=== PATIENT | female | born 1960 | race Caucasian/White ===

== ENCOUNTER 2017-11-28 11:56 | Inpatient (IN) | payer OTHER, MEDICAID ==
[~2017-11-28] VITALS: Ht 154.9 cm; Wt 74.7 kg
[2017-11-28] MEDS ORDERED: IPRATROPIUM BROM 0.5 MG/2.5ML INH SOL NEB ONE (12:00)
[2017-11-28] MEDS ORDERED: ALBUTEROL SULF 2.5 MG/0.5ML(0.5%) NEB SOLN NEB ONE (12:00)
[2017-11-28] MEDS ORDERED: SODIUM CHLORIDE 0.9% 1,000 ML IV ONE (12:08)
[2017-11-28] MEDS ORDERED: IPRATROPIUM BROM 0.5 MG/2.5ML INH SOL HHN ONE (12:15)
[2017-11-28] MEDS ORDERED: ALBUTEROL SULF 2.5 MG/0.5ML(0.5%) NEB SOLN HHN ONE (12:15)
[2017-11-28] MEDS ORDERED: methylPREDNISolone SOD SUCC 125 MG/2 ML VL IV ONE ×2 (12:15→14:30)
[2017-11-28 12:55] LABS: Basophils # (auto) 0 uL; Eosinophils # (auto) 0 uL; Monocytes # (auto) 0.3 uL; Red Cell Distribution Width 14.9 % (11.8-14.3)
[2017-11-28 12:58] LABS: Basophils % (auto) 0.3 % (0.0-2.0); Hematocrit 43.7 % (36.0-46.0); Hemoglobin 14.3 g/dL (12.2-16.2); Lymphocytes # (auto) 1.9 uL; Lymphocytes % (auto) 16.6 % (10.0-50.0); Mean Corpuscular Hemoglobin 28.9 pg (28.0-32.0); Mean Corpuscular Hgb Conc. 32.9 g/dL (32.0-36.0); Monocytes % (auto) 2.8 % (0.0-12.0); Neutrophils % (auto) 80.3 % (37.0-80.0); Platelet Count (auto) 488 10^3/uL (140-450); Red Blood Cells 4.96 10^6/uL (4.0-5.20); White Blood Cell 11.2 10^3/uL (4.4-10.8)
[2017-11-28 13:21] LABS: Albumin 4.1 g/dL (3.4-5.0); Anion Gap 11 (5-15); Blood Urea Nitrogen 19 mg/dL (7-18); Calcium 9.3 mg/dL (8.5-10.1); Carbon Dioxide 21 mmol/L (21-32); Chloride 106 mmol/L (98-107); Glucose 128 mg/dL (74-106); Magnesium 2.2 mg/dL (1.6-2.6); Potassium 4.2 mmol/L (3.5-5.1); Sodium 138 mmol/L (136-145)
[2017-11-28 13:23] LABS: Alanine Aminotransferase 35 U/L (13-56); Aspartate Aminotransferase 21 U/L (15-37); BUN/Creatinine Ratio 14.7; GFR African American 55 mL/min; GFR Non-African American 45 mL/min
[2017-11-28 13:28] LABS: Alkaline Phosphatase 99 U/L (45-117); Bilirubin, Total 0.4 mg/dL (0.2-1.0)
[2017-11-28] MEDS ORDERED: LORazepam 2MG/ML-1ML VIAL IV ONE (13:30)
[2017-11-28] MEDS: SODIUM CHLORIDE 0.9% 1,000 ML IV SCH (14:30)
[2017-11-28] MEDS ORDERED: AZITHROMYCIN 500MG/ 250ML 250 ML IV ONE (14:30)
[2017-11-28] MEDS ORDERED: cefTRIAXone 1GM/10ml IVPUSH 10 ML IV ONE (14:30)
[2017-11-28] MEDS ORDERED: MORPHINE SULFATE 4 MG/ML SYR/VIAL IV PRN (15:45)
[2017-11-28] MEDS: HYDROcodone-ACET 5/325MG TAB PO PRN (16:00)
[2017-11-28] MEDS: BUDESONIDE (INHALATION) 0.5 MG/2 ML NEB NEB SCH (18:45)
[2017-11-28] MEDS: ALBUTEROL SULF 2.5 MG/0.5ML(0.5%) NEB SOLN NEB SCH (18:45)
[2017-11-28] MEDS: IPRATROPIUM BROM 0.5 MG/2.5ML INH SOL NEB SCH (18:45)
[2017-11-28 20:38] VITALS: BP 129/73
[2017-11-28 21:10] VITALS: BP 123/71
[2017-11-28] MEDS: methylPREDNISolone SOD SUCC 125 MG/2 ML VL IV SCH (21:51)
[2017-11-28] MEDS: ALPRAZolam 0.25 MG TAB PO PRN (21:51)
[2017-11-28 22:31] VITALS: BP 129/73
[2017-11-29] MEDS ORDERED: SIMV5TAB50 PO (02:02)
[2017-11-29] MEDS ORDERED: BACL10TA PO (02:02)
[2017-11-29] MEDS ORDERED: ROPI0.5T18 PO (02:02)
[2017-11-29] MEDS ORDERED: TRAZ-181 PO (02:02)
[2017-11-29] MEDS ORDERED: ASPI-492 PO (02:06)
[2017-11-29] MEDS ORDERED: LORA-622 PO (02:06)
[2017-11-29] MEDS ORDERED: PSYL48.56 PO (02:06)
[2017-11-29] MEDS ORDERED: OMEP20TA PO (02:06)
[2017-11-29] MEDS ORDERED: RANI300T3 PO (02:06)
[2017-11-29] MEDS ORDERED: ALPR-229 PO (02:06)
[2017-11-29] MEDS ORDERED: LOSA50TA6 PO (02:06)
[2017-11-29] MEDS ORDERED: NUTRTAB41 OR (02:06)
[2017-11-29] MEDS ORDERED: ALB2T PO (02:11)
[2017-11-29] MEDS ORDERED: LIFI1DRO OP (02:11)
[2017-11-29] MEDS ORDERED: KETO2CRE4 EX (02:11)
[2017-11-29] MEDS ORDERED: DOCU-94 PO (02:11)
[2017-11-29] MEDS ORDERED: POLYSOL5 EACHEYE (02:11)
[2017-11-29] MEDS ORDERED: BECL80AE9 IN (02:11)
[2017-11-29] MEDS ORDERED: ALBU1SYP GT (02:11)
[2017-11-29] MEDS ORDERED: MULT-569 PO (02:11)
[2017-11-29] MEDS ORDERED: FLUT50SP28 (02:11)
[2017-11-29] MEDS: HYDROcodone-ACET 5/325MG TAB PO PRN ×3 (04:14→21:05)
[2017-11-29 05:08] VITALS: BP 130/55
[2017-11-29] MEDS: methylPREDNISolone SOD SUCC 125 MG/2 ML VL IV SCH ×3 (05:33→21:55)
[2017-11-29 06:49] LABS: Potassium 3.7 mmol/L (3.5-5.1)
[2017-11-29 06:55] LABS: BUN/Creatinine Ratio 24.6; Calcium 8.6 mg/dL (8.5-10.1)
[2017-11-29] MEDS: BUDESONIDE (INHALATION) 0.5 MG/2 ML NEB NEB SCH ×2 (07:18→18:54)
[2017-11-29] MEDS: ALBUTEROL SULF 2.5 MG/0.5ML(0.5%) NEB SOLN NEB SCH ×4 (07:18→18:48)
[2017-11-29] MEDS: IPRATROPIUM BROM 0.5 MG/2.5ML INH SOL NEB SCH ×4 (07:18→18:48)
[2017-11-29 08:06] VITALS: BP 140/73
[2017-11-29] MEDS: cefTRIAXone 1GM/10ml IVPUSH 10 ML IV SCH (09:27)
[2017-11-29] MEDS: AZITHROMYCIN 500MG/ 250ML 250 ML IV SCH (09:28)
[2017-11-29] MEDS: SODIUM CHLORIDE 0.9% 1,000 ML IV SCH ×2 (09:30→23:43)
[2017-11-29] MEDS: ALPRAZolam 0.25 MG TAB PO PRN ×2 (10:20→19:18)
[2017-11-29 11:52] VITALS: BP 122/68
[2017-11-29] MEDS: ACETAMINOPHEN 325 MG TAB PO PRN ×2 (12:10→18:06)
[2017-11-29 16:58] VITALS: BP 119/72
[2017-11-29 20:00] VITALS: BP 130/64
[2017-11-29 22:28] VITALS: BP 130/64
[2017-11-30 05:18] VITALS: BP 132/64
[2017-11-30] MEDS: methylPREDNISolone SOD SUCC 125 MG/2 ML VL IV SCH ×3 (06:00→22:39)
[2017-11-30] MEDS: ALBUTEROL SULF 2.5 MG/0.5ML(0.5%) NEB SOLN NEB SCH ×4 (06:39→18:19)
[2017-11-30] MEDS: IPRATROPIUM BROM 0.5 MG/2.5ML INH SOL NEB SCH ×4 (06:39→18:20)
[2017-11-30] MEDS: ACETAMINOPHEN 325 MG TAB PO PRN (08:35)
[2017-11-30 09:00] VITALS: BP 139/76
[2017-11-30] MEDS: cefTRIAXone 1GM/10ml IVPUSH 10 ML IV SCH (09:15)
[2017-11-30] MEDS: ALPRAZolam 0.25 MG TAB PO PRN ×2 (09:24→17:30)
[2017-11-30] MEDS: AZITHROMYCIN 500MG/ 250ML 250 ML IV SCH (09:47)
[2017-11-30] MEDS: BUDESONIDE (INHALATION) 0.5 MG/2 ML NEB NEB SCH ×2 (10:45→23:40)
[2017-11-30] MEDS ORDERED: LEVOFLOXACIN 500MG 100 ML IV ONE (12:45)
[2017-11-30 13:00] VITALS: BP 135/80
[2017-11-30] MEDS: SODIUM CHLORIDE 0.9% 1,000 ML IV SCH (16:45)
[2017-11-30 17:00] VITALS: BP 149/74
[2017-11-30] MEDS: HYDROcodone-ACET 5/325MG TAB PO PRN (20:16)
[2017-11-30 21:50] VITALS: BP 142/66
[2017-12-01] MEDS: ALPRAZolam 0.25 MG TAB PO PRN (03:12)
[2017-12-01 04:53] VITALS: BP 144/73
[2017-12-01 05:43] LABS: Basophils # (auto) 0 uL; Eosinophils # (auto) 0 uL; Hemoglobin 13.7 g/dL (12.2-16.2); Lymphocytes # (auto) 1.6 uL; Monocytes % (auto) 3.4 % (0.0-12.0); Neutrophils # (auto) 11.2 uL; Nucleated Red Blood Cells % 0.1 %
[2017-12-01 05:46] LABS: Hematocrit 42.6 % (36.0-46.0); Lymphocytes % (auto) 11.8 % (10.0-50.0); Mean Corpuscular Hgb Conc. 32.1 g/dL (32.0-36.0); Mean Corpuscular Volume 87.3 fL (80.0-100.0); Monocytes # (auto) 0.5 uL; Neutrophils % (auto) 84.8 % (37.0-80.0); Red Blood Cells 4.89 10^6/uL (4.0-5.20); Red Cell Distribution Width 14.9 % (11.8-14.3); White Blood Cell 13.2 10^3/uL (4.4-10.8)
[2017-12-01 05:53] LABS: Platelet Count (auto) 482 10^3/uL (140-450)
[2017-12-01 05:55] LABS: BUN/Creatinine Ratio 15.9; Calcium 8.3 mg/dL (8.5-10.1); Magnesium 2.8 mg/dL (1.6-2.6); Phosphorus 4.8 mg/dL (2.5-4.90); Potassium 3.8 mmol/L (3.5-5.1)
[2017-12-01] MEDS: methylPREDNISolone SOD SUCC 125 MG/2 ML VL IV SCH ×2 (06:28→14:00)
[2017-12-01] MEDS: IPRATROPIUM BROM 0.5 MG/2.5ML INH SOL NEB SCH ×2 (06:34→10:10)
[2017-12-01] MEDS: BUDESONIDE (INHALATION) 0.5 MG/2 ML NEB NEB SCH (06:35)
[2017-12-01] MEDS: ALBUTEROL SULF 2.5 MG/0.5ML(0.5%) NEB SOLN NEB SCH ×2 (06:35→10:10)
[2017-12-01] MEDS ORDERED: CALCIUM CARB 500 MG CHEW TAB PO PRN (07:45)
[2017-12-01 08:35] VITALS: BP 143/75
[2017-12-01] MEDS: SODIUM CHLORIDE 0.9% 1,000 ML IV SCH (09:24)
[2017-12-01] MEDS ORDERED: LEVOFLOXACIN 500MG 100 ML IV SCH (10:00)
== END 2017-12-01 14:20 | disposition home or self-care (01) | DRG 682 ==
LOC: ER 11:56 → OVERFLOW 11:57 → CENTRAL 20:28
PROVIDERS: ADMIT Internal Medicine; ATTEND Internal Medicine
DX: N17.9 Acute kidney failure, unspecified (principal); J96.00 Acute respiratory failure, unspecified whether with hypoxia or hypercapnia; J45.901 Unspecified asthma with (acute) exacerbation; J45.902 Unspecified asthma with status asthmaticus; E78.5 Hyperlipidemia, unspecified; F41.9 Anxiety disorder, unspecified; Z96.649 Presence of unspecified artificial hip joint; I10 Essential (primary) hypertension; Z90.710 Acquired absence of both cervix and uterus
CPT/HCPCS: 36415; 71046; 80048; 80053; 83735; 83880; 84100; 84484; 85025; 93005; 94640; 94644; 94761; 96374; 96375; J1956

== ENCOUNTER 2018-01-01 10:09 | Emergency (ER) | payer OTHER, MEDICAID ==
[~2018-01-01] VITALS: Ht 154.9 cm; Wt 70.3 kg
[~2018-01-01 10:09] MED LIST: ALB2T PO; ALBU1SYP GT; ALPR-229 PO; ASPI-492 PO; BACL10TA PO; BECL80AE9 IN; DOCU-94 PO; FLUT50SP28; KETO2CRE4 EX; LIFI1DRO OP; LORA-622 PO; LOSA50TA6 PO; MULT-569 PO; NUTRTAB41 OR; OMEP20TA PO; POLYSOL5 EACHEYE; PSYL48.56 PO; RANI300T3 PO; ROPI0.5T18 PO; SIMV5TAB50 PO; TRAZ-181 PO
[2018-01-01] MEDS ORDERED: IPRATROPIUM BROM 0.5 MG/2.5ML INH SOL ONE (10:12)
[2018-01-01] MEDS ORDERED: ALBUTEROL SULF 2.5 MG/0.5ML(0.5%) NEB SOLN ONE (10:12)
[2018-01-01] MEDS ORDERED: LORazepam 2MG/ML-1ML VIAL IV ONE (10:15)
[2018-01-01] MEDS ORDERED: methylPREDNISolone SOD SUCC 125 MG/2 ML VL IV ONE (10:15)
[2018-01-01] MEDS ORDERED: IPRATROPIUM BROM 0.5 MG/2.5ML INH SOL NEB ONE (10:15)
[2018-01-01] MEDS ORDERED: ALBUTEROL SULF 2.5 MG/0.5ML(0.5%) NEB SOLN NEB ONE (10:15)
[2018-01-01 10:56] LABS: Basophils # (auto) 0.1 uL; Eosinophils # (auto) 0.1 uL; Lymphocytes # (auto) 2.9 uL
[2018-01-01 10:59] LABS: Basophils % (auto) 0.8 % (0.0-2.0); Eosinophils % (auto) 0.9 % (0.0-7.0); Hematocrit 43.1 % (36.0-46.0); Hemoglobin 14.2 g/dL (12.2-16.2); Lymphocytes % (auto) 28.9 % (10.0-50.0); Mean Corpuscular Volume 87.9 fL (80.0-100.0); Monocytes # (auto) 0.4 uL; Monocytes % (auto) 4.4 % (0.0-12.0); Neutrophils # (auto) 6.5 uL; Nucleated Red Blood Cells % 0.2 %; Platelet Count (auto) 466 10^3/uL (140-450); Red Cell Distribution Width 14.2 % (11.8-14.3)
[2018-01-01 11:08] LABS: Alanine Aminotransferase 36 U/L (13-56); Anion Gap 12 (5-15); Aspartate Aminotransferase 22 U/L (15-37); BUN/Creatinine Ratio 6.4; Blood Urea Nitrogen 6 mg/dL (7-18); Calcium 8.9 mg/dL (8.5-10.1); Carbon Dioxide 22 mmol/L (21-32); Chloride 106 mmol/L (98-107); GFR African American 79 mL/min; GFR Non-African American 65 mL/min; Glucose 87 mg/dL (74-106); Magnesium 2.5 mg/dL (1.6-2.6); Potassium 3.8 mmol/L (3.5-5.1); Sodium 140 mmol/L (136-145)
[2018-01-01 11:13] LABS: Alkaline Phosphatase 121 U/L (45-117); Bilirubin, Total 0.4 mg/dL (0.2-1.0); Total Protein 7.9 g/dL (6.4-8.2)
[2018-01-01] MEDS ORDERED: HYDROcodone-ACET 5/325MG TAB PO ONE (12:30)
[2018-01-01] MEDS ORDERED: LEVOFLOXACIN 500MG 100 ML IV ONE (13:45)
[2018-01-01] MEDS ORDERED: EPINEPHrine HCL 0.5 ML NEB NEB ONE (13:45)
[2018-01-01] MEDS ORDERED: ALPRAZolam 0.5 MG TAB PO ONE (15:30)
[2018-01-01 16:06] VITALS: BP 131/64
== END 2018-01-01 16:30 | disposition home or self-care (01) ==
LOC: ER 10:09
DX: J44.1 Chronic obstructive pulmonary disease with (acute) exacerbation (principal); F41.1 Generalized anxiety disorder; N39.0 Urinary tract infection, site not specified; E78.5 Hyperlipidemia, unspecified; I10 Essential (primary) hypertension; K21.9 Gastro-esophageal reflux disease without esophagitis; Z90.710 Acquired absence of both cervix and uterus
CPT/HCPCS: 36415; 71045; 80053; 83735; 84484; 85025; 93005; 94640; 94761; 96365; 96375; 99285; J1956; J2060; J2930

== ENCOUNTER 2019-12-09 11:12 | Inpatient (IN) | payer OTHER, MEDICAID, SELFPAY ==
[~2019-12-09] VITALS: Ht 154.9 cm; Wt 78.2 kg
[~2019-12-09 11:12] MED LIST changes: -ALBU1SYP GT; +ALBU2SYP10 GT; -ALPR-229 PO; +ALPR2TAB6 PO; +LOSA-69 PO; -LOSA50TA6 PO; -MULT-569 PO; +MULT1TAB28 PO; +POLYSOL2 EACHEYE; -POLYSOL5 EACHEYE
[2019-12-09 12:45] LABS: Basophils # (auto) 0.1 10 ^3/uL (0-0.2); Basophils % (auto) 1.3 % (0.0-2.0); Eosinophils # (auto) 0.1 10 ^3/uL (0-0.8); Hematocrit 44.2 % (36.0-46.0); Hemoglobin 14.9 g/dL (12.2-16.2); Lymphocytes # (auto) 2.4 10 ^3/uL (0.4-5.4); Lymphocytes % (auto) 31.5 % (10.0-50.0); Mean Corpuscular Hemoglobin 30.3 pg (28.0-32.0); Mean Corpuscular Hgb Conc. 33.7 g/dL (32.0-36.0); Monocytes # (auto) 0.3 10 ^3/uL (0-1.3); Monocytes % (auto) 4.5 % (0.0-12.0); Neutrophils # (auto) 4.8 10 ^3/uL (1.6-8.6); Neutrophils % (auto) 61.7 % (37.0-80.0); Nucleated Red Blood Cells % 0.1 %; Platelet Count (auto) 380 10^3/uL (140-450); Red Blood Cells 4.91 10^6/uL (4.0-5.20); Red Cell Distribution Width 12.6 % (11.8-14.3); White Blood Cell 7.8 10^3/uL (4.4-10.8)
[2019-12-09] MEDS ORDERED: IPRATROPIUM BROM 0.5 MG/2.5ML INH SOL NEB ONE (13:00)
[2019-12-09] MEDS ORDERED: AZITHROMYCIN 500MG/ 250ML 250 ML IV ONE (13:00)
[2019-12-09] MEDS ORDERED: methylPREDNISolone SOD SUCC 125 MG/2 ML VL IV ONE (13:00)
[2019-12-09] MEDS ORDERED: ALBUTEROL SULF 2.5 MG/0.5ML(0.5%) NEB SOLN NEB ONE (13:00)
[2019-12-09 13:02] LABS: Albumin 3.9 g/dL (3.4-5.0); Calcium 8.7 mg/dL (8.5-10.1); Potassium 3.6 mmol/L (3.5-5.1)
[2019-12-09 13:06] LABS: BUN/Creatinine Ratio 11.3; Bilirubin, Total 0.5 mg/dL (0.2-1.0); Lactic Acid w/Reflex 3.2 mmol/L (0.4-2.0); Total Protein 7.4 g/dL (6.4-8.2)
[2019-12-09 18:22] LABS: Urine Bacteria FEW /hpf (None Seen); Urine Blood Negative /uL (Negative); Urine Specific Gravity 1.006 (1.001-1.035); Urine WBC 4 /hpf (0 - 5)
[2019-12-09] MEDS ORDERED: HYDROcodone-ACET 5/325MG TAB PO PRN (19:00)
[2019-12-09] MEDS ORDERED: MORPHINE SULF INJ 2 MG/ML SYRINGE 1ML IV PRN ×2 (19:00)
[2019-12-09] MEDS ORDERED: ONDANSETRON HCL 4 MG/2 ML VIAL IV PRN (19:00)
[2019-12-09] MEDS ORDERED: NITROGLYCERIN 0.4 MG SL TAB SL PRN (19:00)
[2019-12-09 19:40] VITALS: BP 121/72
[2019-12-09 20:10] LABS: CRP High Sensitivity 0.35 mg/dL (< 0.3)
[2019-12-09] MEDS: MONTELUKAST SODIUM 10 MG TAB PO SCH (21:37)
[2019-12-09] MEDS: LORazepam 0.5 MG TAB PO PRN (21:38)
[2019-12-09] MEDS: ALBUTEROL SULF HFA 90MCG INH 200DOSE IN SCH (22:40)
--- NOTE | 2019-12-09 23:20 | NUR ---
Telemetry admit from ER [facility] admitted to Telemetry unit after SBAR received. Patient oriented to Rodney hughes RN, unit, room 282, and unit policies regarding patient care and visiting hours. Patient now on continuous telemetry monitoring, tele box #[id number] and telemetry reading on arrival to unit is SR 97. Patient placed on bedside oxygen, weighed by bedscale and encouraged to call if they need something. All questions and concerns addressed, patient verbalized understanding.
[2019-12-10] MEDS ORDERED: FLUT100I IN (00:59)
[2019-12-10] MEDS ORDERED: ESCI10TA53 PO (00:59)
--- NOTE | 2019-12-10 01:01 | NUR ---
Next of kin - Joanna Penn (Parents) [phone] Daughter - Aury [phone] Parents address - [address] [place] [address]
[2019-12-10 01:21] VITALS: BP 133/74
[2019-12-10 06:00] VITALS: BP 118/73
--- NOTE | 2019-12-10 06:59 | NUR ---
ASSESSMENT PATIENT VS ARE WNL IN AM. PATIENT STATES SHE "FEELS BETTER" THIS MORNING. BREATHING IS NON LABORED AND NO C/O PAIN.
[2019-12-10 07:55] LABS: Basophils # (auto) 0 10 ^3/uL (0-0.2); Basophils % (auto) 0.2 % (0.0-2.0); Eosinophils # (auto) 0 10 ^3/uL (0-0.8); Hematocrit 44.9 % (36.0-46.0); Hemoglobin 14.5 g/dL (12.2-16.2); Lymphocytes # (auto) 1.9 10 ^3/uL (0.4-5.4); Lymphocytes % (auto) 10.8 % (10.0-50.0); Mean Corpuscular Hemoglobin 29.5 pg (28.0-32.0); Mean Corpuscular Hgb Conc. 32.3 g/dL (32.0-36.0); Mean Corpuscular Volume 91.2 fL (80.0-100.0); Monocytes # (auto) 0.8 10 ^3/uL (0-1.3); Monocytes % (auto) 4.2 % (0.0-12.0); Neutrophils # (auto) 15.2 10 ^3/uL (1.6-8.6); Neutrophils % (auto) 84.8 % (37.0-80.0); Platelet Count (auto) 386 10^3/uL (140-450); Red Blood Cells 4.92 10^6/uL (4.0-5.20); Red Cell Distribution Width 12.6 % (11.8-14.3)
--- NOTE | 2019-12-10 07:55 | NUR ---
OPENING SHIFT NOTE Assumed care of patient. Patient is awake and alert. PT states she "feels better". Vital signs WNL. No S/S of distress/SOB or pain. Isolation precautions in place. Will continue to monitor for changes Q1hr and PRN.
[2019-12-10 08:00] VITALS: BP 146/79
[2019-12-10 08:15] LABS: BUN/Creatinine Ratio 10.2; Potassium 3.7 mmol/L (3.5-5.1)
[2019-12-10] MEDS: ALBUTEROL SULF HFA 90MCG INH 200DOSE IN SCH ×3 (08:41→22:00)
[2019-12-10] MEDS ORDERED: cefTRIAXone 1GM/50ML D5W 50 ML IV SCH (09:00)
[2019-12-10] MEDS ORDERED: FAMOTIDINE 20 MG TAB PO SCH (10:00)
[2019-12-10] MEDS ORDERED: AZITHROMYCIN 500MG/ 250ML 250 ML IV SCH (10:00)
[2019-12-10] MEDS: ACETAMINOPHEN 500 MG TAB PO PRN ×2 (10:00→18:52)
[2019-12-10] MEDS ORDERED: methylPREDNISolone SOD SUCC 40 MG/ML VL IV SCH (10:00)
[2019-12-10] MEDS ORDERED: predniSONE 20 MG TAB PO SCH (10:00)
[2019-12-10] MEDS: levoFLOXacin 500MG 100 ML IV SCH (10:56)
[2019-12-10] MEDS: ENOXAPARIN SOD 40 MG/0.4 ML SYRINGE SC SCH (10:57)
[2019-12-10] MEDS: LORazepam 0.5 MG TAB PO PRN ×2 (11:05→19:51)
--- NOTE | 2019-12-10 11:49 | NUR ---
SPUTUM SAMPLE COLLECTED AND SENT TO LAB.
[2019-12-10 13:00] VITALS: BP 134/75
[2019-12-10 18:00] VITALS: BP 136/95
--- NOTE | 2019-12-10 18:41 | NUR ---
MED REC REVIEWED AND UPDATED
--- NOTE | 2019-12-10 19:05 | NUR ---
OPENING SHIFT NOTE: PATIENT IS AWAKE, ALERT, AND ORIENTED x 4. PATIENT STATES SHE IS HAVING ANXIETY AND IS SHAKY AND VISIBLY UPSET, SHE IS REQUESTING A BREATHING TREATMENT AND SOMETHING TO HELP FOR THE ANXIETY, WILL MEDICATE FOR ANXIETY PRN AND PAGE RESPIRATORY FOR BREATHING TREATMENT. BED IS LOW, LOCKED, TWO SIDE RAILS RAISED, AND CALL [place] IS WITHIN REACH. PATIENT CONNECTED TO TELE BOX #[id number] AND CURRENT READING IS 98 BPM. INSTRUCTED ON POC AND TO CALL FOR ASSISTANCE, WILL CONTINUE TO MONITOR Q 1HR AND PRN.
[2019-12-10] MEDS ORDERED: TIZA4CAP PO (19:39)
[2019-12-10] MEDS ORDERED: ROPI0.254 PO (19:39)
[2019-12-10] MEDS ORDERED: HYDR-3682 PO (19:39)
[2019-12-10] MEDS ORDERED: SIMV-13 PO (19:39)
[2019-12-10] MEDS ORDERED: ESZO3TAB53 PO (19:39)
[2019-12-10 20:00] VITALS: BP 136/95
[2019-12-10] MEDS: MONTELUKAST SODIUM 10 MG TAB PO SCH (22:10)
--- NOTE | 2019-12-11 02:20 | NUR ---
CARE ENDORSED TO TRUNG KRISHNAMURTHY.
--- NOTE | 2019-12-11 02:25 | NUR ---
Assumed care of patient, awake and alert. No S/S of distress/SOB or pain. Instructed on POC and to call for assist PRN, will continue to monitor for changes Q1hr and PRN.
[2019-12-11] MEDS: LORazepam 0.5 MG TAB PO PRN (03:52)
[2019-12-11 04:49] VITALS: BP 116/58
[2019-12-11 05:59] LABS: Basophils # (auto) 0 10 ^3/uL (0-0.2); Basophils % (auto) 0.3 % (0.0-2.0); Eosinophils # (auto) 0 10 ^3/uL (0-0.8); Eosinophils % (auto) 0.1 % (0.0-7.0); Hemoglobin 14.4 g/dL (12.2-16.2); Lymphocytes % (auto) 22.5 % (10.0-50.0); Mean Corpuscular Hemoglobin 29.6 pg (28.0-32.0); Mean Corpuscular Hgb Conc. 32.6 g/dL (32.0-36.0); Mean Corpuscular Volume 90.8 fL (80.0-100.0); Monocytes # (auto) 0.9 10 ^3/uL (0-1.3); Monocytes % (auto) 7.1 % (0.0-12.0); Neutrophils # (auto) 9.3 10 ^3/uL (1.6-8.6); Platelet Count (auto) 392 10^3/uL (140-450); Red Blood Cells 4.85 10^6/uL (4.0-5.20); Red Cell Distribution Width 12.8 % (11.8-14.3); White Blood Cell 13.2 10^3/uL (4.4-10.8)
[2019-12-11 06:18] LABS: Potassium 3.7 mmol/L (3.5-5.1)
--- NOTE | 2019-12-11 07:12 | NUR ---
OPENING SHIFT NOTE ASSUMED CARE OF PATIENT FROM [employer] STORYWRITER RAGHU NINO. PATIENT IS AWAKE, ALERT, AND ORIENTED X4. PATIENT HAS NO S/S OF DISTRESS/SOB OR PAIN. INSTRUCTED PATIENT ON POC, PATIENT VERBALIZED UNDERSTANDING. BED IS IN LOWEST POSITION WITH SIDE RAILS RAISED X2, BED WHEELS LOCKED, AND CALL LIGHT IS WITHIN REACH. WILL CONTINUE TO MONITOR.
[2019-12-11 08:00] VITALS: BP 146/77
--- NOTE | 2019-12-11 08:00 | NUR ---
Opening Shift Note Assumed care of patient, awake, alert and oriented. No complaints of pain. Nasal canula in place running at 3L. No signs or symptoms of distress. Bed locked, in lowest position, bed rails up x2. Instructed on POC and to call for assist PRN, will continue to monitor for changes Q1hr and PRN.
[2019-12-11 08:05] VITALS: BP 146/77
[2019-12-11] MEDS: ALBUTEROL SULF HFA 90MCG INH 200DOSE IN SCH ×2 (08:20→14:47)
[2019-12-11] MEDS: ENOXAPARIN SOD 40 MG/0.4 ML SYRINGE SC SCH (09:39)
[2019-12-11] MEDS: levoFLOXacin 500MG 100 ML IV SCH (09:39)
[2019-12-11 12:00] VITALS: BP 123/68
--- NOTE | 2019-12-11 12:15 | NUR ---
MD CASTILLO AT BEDSIDE UPDATED MD ON PATIENT'S STATUS, MD IS AWARE. PER MD ASSESS PATIENT'S SPO2 WITHOUT OXYGEN AND PUT IN PT ORDERS. ONCE PATIENT IS CLEARED BY PULMONARY SHE CAN BE DISCHARGED PER DOCTOR.
--- NOTE | 2019-12-11 14:03 | NUR ---
Left a message for Dr. Carbajal about patients O2 sats at 96% after ambulating with PT and clearance from pulmonology.
[2019-12-11 16:51] VITALS: BP 146/84
[2019-12-11] MEDS ORDERED: LEVO500T21 PO (17:07)
[2019-12-11 17:26] VITALS: BP 146/84
== END 2019-12-11 18:20 | disposition home or self-care (01) | DRG 202 ==
LOC: ER 11:12 → TELE 19:28 → TELE-WESTW 22:32
PROVIDERS: ADMIT Nurse Practitioner Acute Care; ATTEND Internal Medicine
DX: J45.51 Severe persistent asthma with (acute) exacerbation (principal); J44.1 Chronic obstructive pulmonary disease with (acute) exacerbation; N30.00 Acute cystitis without hematuria; J98.11 Atelectasis; F41.9 Anxiety disorder, unspecified; I10 Essential (primary) hypertension; E78.5 Hyperlipidemia, unspecified; K21.9 Gastro-esophageal reflux disease without esophagitis; Z79.899 Other long term (current) drug therapy; Z88.8 Allergy status to other drugs, medicaments and biological substances; Z03.818 Encounter for observation for suspected exposure to other biological agents ruled out
CPT/HCPCS: 36415; 71045; 80048; 80053; 81001; 82728; 83605; 83615; 83735; 85025; 85379; 86141; 87040; 87070; 87086; 87205; 87449; 87804; 87880; 93005; 94640; 96365; 96375; 97163; G0378; J0696; J1956